=== PATIENT | male | born 1940 | race Caucasian/White ===

== ENCOUNTER 2020-07-25 13:20 | Emergency (ER) | payer MEDICARE ==
[2020-07-25 13:49] VITALS: BP 132/67; PULSE 89
--- NOTE | 2020-07-25 21:24 | ER ---
REASON FOR EMERGENCY ROOM VISIT: Weakness and lightheadedness. HISTORY: This 80-year-old man has been followed by Dr. Mcbride, Internal Medicine from [facility] in [place] regarding anemia and workup of an elusive GI bleed. For the past year or so, he has had intermittent episodes of GI bleeding which have thus far not been localized. He has had upper GI endoscopy twice as well as a colonoscopy and a capsule endoscopy 3 months ago. All of these were negative without any localization of the bleeding. His GI bleeding has typically been manifested by dark stool, sometimes looking more maroon in color. He has not yet required a transfusion. His hemoglobins have not gotten sufficiently low enough for him to be require transfusion. It has nonetheless been a vexing problem for the patient and his outreach worker because he requires anticoagulation (Eliquis) due to the fact that he has a history of deep vein thrombosis, pulmonary embolism, and prosthetic heart valves. This problem has been dealt with for the past year. On June 29, his hemoglobin was 9.7, he has had some progressive gradually increasing weakness and a tendency toward dizziness over the past month, and 2 days ago, his hemoglobin was 8.7. He has had dark stools all along, but no bright red blood has ever been noticed and he has never had any hematemesis. Over the past couple of days, he has had a gradual increasing weakness and lightheadedness, which is not new, but it seems to be more bothersome to him. He has never had any syncopal episodes. For this reason, he came in to have his hemoglobin checked and to determine whether or not a transfusion was indicated. On the direction of his physician, he did just discontinue his Eliquis yesterday, but he is still taking 1 baby aspirin per day. He is very active man and is frustrated with his inability to walk for long distances because he plays out and he likes to remain very active. He states that sitting around or sitting in a chair drives him crazy. PAST MEDICAL HISTORY: 1. Pulmonary embolus 10 to 15 years ago. 2. Replacement of mitral and aortic valves as well as repair of tricuspid valve in 2019 at [facility] in [place] (Dr. Simmons). 3. Small bowel resection due to what sounds like strangulation obstruction due to adhesions in 2016. 4. Appendectomy as an adolescent. 5. Eye surgery. 6. Shoulder surgery. 7. Spinal injections for chronic pain. MEDICATIONS: Includes: 1. Zetia 10 mg p.o. daily. 2. Aspirin 81 mg p.o. daily. 3. Glucosamine. 4. Ferrous sulfate 325 mg p.o. daily. ALLERGIES: TO FENTANYL, SULFAMETHOXAZOLE/TRIMETHOPRIM. REVIEW OF SYSTEMS: Pertinent positives and negatives as listed in the HPI. PHYSICAL EXAMINATION: GENERAL: Reveals a pleasant, somewhat pale-appearing, thin, alert man, in no acute distress. VITAL SIGNS: He is afebrile. Blood pressure 132/67, he did not have any significant orthostatic drop from supine to sitting to standing, please see nurse's notes. Heart rate is 89, O2 sats 100% on room air. HEENT: Generally appears pale. No scleral icterus. NECK: Supple. No adenopathy. No JVD. CHEST: Clear to auscultation with good air exchange. No wheezes, rhonchi, or rales. CARDIAC: Regular rate with a systolic murmur over the entire precordium. This does not seem to radiate. ABDOMEN: Nondistended, soft, nontender. No hepatosplenomegaly. RECTAL: not performed as he has had several of these recently. EXTREMITIES: Normal pulses. No edema. LABORATORY DATA: His hemoglobin is now 7.8, whereas it was 8.7 two days ago. His WBC 6100. His platelet count is a 143,000. PT is 10.7 with an INR 1.0. His electrolytes are normal. His BUN is 31 with a creatinine of 1.39 and GFR is 49. Glucose is 164 (nonfasting), calcium is 8.4. Liver enzymes are normal. His urinalysis is unremarkable. IMPRESSION: History of what sounds like lower GI bleeding, precise etiology and site has not yet been localized. PLAN: We did discuss the pros and cons of transfusing him at this point in time. I did not feel that he definitely needs a transfusion at this time; however, particularly since he is going to see his primary care provider the day after tomorrow. I advised him to take things easy and to avoid abruptly standing or overexerting himself. I think most likely he will require transfusion, but probably even more importantly is that a more aggressive approach needs to be taken to try and localize the origin and etiology of his GI bleeding, which does seems to be relatively slow. What makes us even more urgent is the fact that he does need some form of anticoagulation given his history of DVT, pulmonary embolism, and heart valve prosthesis. His son, who is of the Physician [employer] Assistant, is very familiar with his problem, was present and understood and agreed with this. All questions were answered. Certainly, if any issues or concerns arise in the interim, they can give us a call or return. DEON/JACKELINE /[id number]
== END 2020-07-25 15:35 | disposition home or self-care (01) ==
LOC: LB.ED 13:20
DX: R53.1 Weakness (principal); Z88.4 Allergy status to anesthetic agent; Z88.2 Allergy status to sulfonamides; Z79.82 Long term (current) use of aspirin; Z79.899 Other long term (current) drug therapy
CPT/HCPCS: 36415; 80053; 81003; 85025; 85610; 99284